=== PATIENT | female | born 1990 | race Caucasian/White ===

== ENCOUNTER 2016-06-15 16:44 | Emergency (ER) | payer OTHER ==
--- NOTE | 2016-06-15 17:14 | ER Document Report ---
ED Medical Screen (RME) - General Stated Complaint: RIGHT FOOD INJURY Time seen by provider: 17:13 Mode of Arrival: Ambulatory Information source: Patient Notes: 25-year-old fell out of the truck to her 3 days ago she's complaining about her right foot pain over the distal third metatarsal. She has to walk on her heel due to the pain.. I have greeted and performed a rapid initial assessment of this patient. A comprehensive ED assessment, evaluation of the patient, analysis of test results , and completion of the medical decision making process will be conducted by additional ED providers. - Related Data Allergies/Adverse Reactions: Penicillins Allergy (Verified 06/15/16 17:13)
--- NOTE | 2016-06-15 19:46 | ER Document Report ---
ED Extremity Problem, Lower - General Chief Complaint: Foot Injury Stated Complaint: RIGHT FOOD INJURY Time seen by provider: 19:40 Mode of Arrival: Ambulatory Information source: Patient Notes: This 25-year-old female patient comes emergency room complaining of pain to the right distal foot. She fell out of a truck that she was getting out of and not paying attention about 3 days ago. She has been walking on her heel due to pain when she tries to step off on that foot. TRAVEL OUTSIDE OF THE [place] IN LAST 30 DAYS: No - Related Data Allergies/Adverse Reactions: Penicillins Allergy (Verified 06/15/16 17:13) Past Medical History - General Information source: Patient - Social History Smoking Status: Current Every Day Smoker Cigarette use (# per day): Yes Chew tobacco use (# tins/day): No Smoking Education Provided: No Frequency of alcohol use: None Drug Abuse: None Occupation: [employer] Lives with: Friend Family History: Reviewed & Not Pertinent Patient has suicidal ideation: No Patient has homicidal ideation: No - Medical History Medical History: Negative Past Surgical History: Reports: Hx Oral Surgery - [place] teeth removal, Hx Orthopedic Surgery - Bunion surgery Review of Systems - Review of Systems Constitutional: No symptoms reported EENT: No symptoms reported Cardiovascular: No symptoms reported Respiratory: No symptoms reported Gastrointestinal: No symptoms reported Genitourinary: No symptoms reported Female Genitourinary: Last menstrual period - Ended 2 days ago. First period in a few years. She had been on the Mirena and the Depo shot until recently. Musculoskeletal: See HPI Skin: No symptoms reported Hematologic/Lymphatic: No symptoms reported Neurological/Psychological: No symptoms reported Physical Exam - Vital signs Vitals: Temp Pulse Resp BP Pulse Ox 97.6 F 68 14 125/86 H 100 06/15/16 17:12 06/15/16 17:12 06/15/16 17:12 06/15/16 17:12 06/15/16 17:12 Interpretation: Normal - General General appearance: Appears well, Alert In distress: None - HEENT Head: Normocephalic, Atraumatic Eyes: Normal Pupils: PERRL Neck: Normal - Respiratory Respiratory status: No respiratory distress - Cardiovascular Rhythm: Regular - Abdominal Inspection: Normal - Back Back: Normal - Extremities General upper extremity: Normal ROM General lower extremity: Other - The right foot is quite tender to palpate the ball of the foot on the plantar and dorsal surface. There may be some minor swelling. There is no ecchymosis. There is no tenderness at the base of the fifth toe. - Neurological Neuro grossly intact: Yes - Psychological Associated symptoms: Normal affect, Normal mood - Skin Skin Temperature: Warm Skin Moisture: Dry Skin Color: Normal Course - Re-evaluation Re-evalutation: 06/15/16 20:00 The postop shoe was placed on the right foot by the nurse. It fits well and allows the patient to walk without stepping off on the ball of the foot. - Vital Signs Vital signs: Temp Pulse Resp BP Pulse Ox 97.6 F 68 14 125/86 H 100 06/15/16 17:12 06/15/16 17:12 06/15/16 17:12 06/15/16 17:12 06/15/16 17:12 - Diagnostic Test Radiology reviewed: Image reviewed, Reports reviewed - X-ray shows a lucency at the base of the right fifth toe proximal phalanx. This is not where the tenderness is located. Discharge - Discharge Clinical Impression: Sprain of foot, right Qualifiers: Encounter type: initial encounter Qualified Code(s): S93.601A - Unspecified sprain of right foot, initial encounter Condition: Stable Disposition: HOME, SELF-CARE Additional Instructions: Sprained Foot: Your injury is a sprain. A sprain results from stretching of the ligaments , usually from a twisting injury. The ligaments will require time and protection in order to heal properly. Many sprains are quite disabling and should be taken seriously. The usual initial treatment of sprains is cold packs, elevation, and rest of the injured area. Your physician has assessed the seriousness of your ligament injury, and has outlined a treatment plan. Understand that this treatment may change, depending on how you progress. If a re-examination was recommended, it is important that you follow up as instructed. Call the doctor any time if there is severe pain, numbness, or loss of function in the injured area. USE THE POST-OP SHOE TO PREVENT EXTENDING THE TOES WHEN YOU WALK. LIMIT WALKING. TAKE TYLENOL AND MOTRIN FOR PAIN IF NEEDED. FOLLOW UP WITH A LOCAL MEDICAL DOCTOR IF NOT IMPROVING. RETURN TO THE EMERGENCY ROOM IF ANY NEW OR WORSENING SYMPTOMS.
[2016-06-15 20:08] VITALS: BP 133/89
== END 2016-06-15 20:05 | disposition home or self-care (01) ==
LOC: ER 16:44
DX: S93.601A Unspecified sprain of right foot, initial encounter (principal); W17.89XA Other fall from one level to another, initial encounter; Z88.0 Allergy status to penicillin; F17.210 Nicotine dependence, cigarettes, uncomplicated
CPT/HCPCS: 99283